=== PATIENT | female | born 1955 | race Caucasian/White ===

== ENCOUNTER 2025-09-30 12:29 | Emergency (ER) | payer MEDICARE, OTHER ==
[2025-09-30] MEDS ORDERED: HYDROcodone/Acetaminophen 10/325 mg Tablet ONE (13:20)
[2025-09-30] MEDS ORDERED: Bacitracin 1 PK ONE (13:38)
== END 2025-09-30 14:20 | disposition home or self-care (01) ==
LOC: ERS 12:29
DX: S51.801A Unspecified open wound of right forearm, initial encounter (principal); I10 Essential (primary) hypertension; Z23 Encounter for immunization; Z79.899 Other long term (current) drug therapy; W01.0XXA Fall on same level from slipping, tripping and stumbling without subsequent striking against object, initial encounter
CPT/HCPCS: 90471; 90715